=== PATIENT | female | born 1960 | race Two or more races ===

== ENCOUNTER 2018-05-24 08:35 | Emergency (ER) | payer OTHER ==
[~2018-05-24] VITALS: Ht 160 cm; Wt 70.3 kg
[~2018-05-24 08:35] MED LIST: COZAAR50 MG
[2018-05-24] MEDS ORDERED: SYNTHROID50 MCG (08:57)
[2018-05-24] MEDS ORDERED: LIPITOR40 MG (08:57)
== END 2018-05-24 12:11 | disposition home or self-care (01) ==
LOC: ER 08:35
DX: R10.2 Pelvic and perineal pain (principal)

== ENCOUNTER 2019-01-20 08:47 | Outpatient (CLI) | payer OTHER ==
[~2019-01-20 08:47] MED LIST changes: +LIPITOR40 MG; +SYNTHROID50 MCG
== END 2019-01-20 09:35 | disposition home or self-care (01) ==
LOC: SONOGRAMA 08:47
DX: E04.2 Nontoxic multinodular goiter (principal)

== ENCOUNTER 2019-02-25 11:31 | Emergency (ER) | payer OTHER ==
[~2019-02-25] VITALS: Ht 160 cm; Wt 71.7 kg
[2019-02-25] MEDS ORDERED: BUTALBIT-ACETA1 EACH PO (13:17)
[2019-02-25] MEDS ORDERED: LOSARTAN POTAS100 MG PO (13:17)
[2019-02-25] MEDS ORDERED: NORFLEX100MG PO (13:17)
== END 2019-02-25 13:28 | disposition home or self-care (01) ==
LOC: ER 11:31
DX: G44.209 Tension-type headache, unspecified, not intractable (principal)

== ENCOUNTER 2020-07-23 10:33 | Outpatient (CLI) | payer OTHER ==
[~2020-07-23 10:33] MED LIST changes: +BUTALBIT-ACETA1 EACH PO; +LOSARTAN POTAS100 MG PO; +NORFLEX100MG PO
== END 2020-07-23 10:36 | disposition home or self-care (01) ==
LOC: SONOGRAMA 10:33
PROVIDERS: ATTEND Pathology Anatomic Pathology & Clinical Pathology
DX: E04.2 Nontoxic multinodular goiter (principal)

== ENCOUNTER 2020-12-07 10:21 | Outpatient (CLI) | payer OTHER | END 2020-12-07 10:23 | disposition home or self-care (01) | LOC: NUCLEAR 10:21 | PROVIDERS: ATTEND Internal Medicine | DX: M81.0 Age-related osteoporosis without current pathological fracture (principal); I87.2 Venous insufficiency (chronic) (peripheral) ==

== ENCOUNTER 2020-12-27 07:21 | Outpatient (CLI) | payer OTHER | END 2020-12-27 07:35 | disposition home or self-care (01) | LOC: TOM 07:21 | PROVIDERS: ATTEND Internal Medicine Gastroenterology | DX: K86.2 Cyst of pancreas (principal); K57.30 Diverticulosis of large intestine without perforation or abscess without bleeding; R10.30 Lower abdominal pain, unspecified ==

== ENCOUNTER → 2020-12-27 08:26 | Outpatient (CLI) | payer OTHER | END | disposition home or self-care (01) | LOC: LAB 08:26 | PROVIDERS: ATTEND Radiology Diagnostic Radiology | DX: K57.30 Diverticulosis of large intestine without perforation or abscess without bleeding (principal) ==

== ENCOUNTER 2021-03-20 11:15 | Outpatient (CLI) | payer OTHER | END 2021-03-20 11:29 | disposition home or self-care (01) | LOC: SONOGRAMA 11:15 | PROVIDERS: ATTEND Internal Medicine Cardiovascular Disease | DX: M71.21 Synovial cyst of popliteal space [Baker], right knee (principal); M25.561 Pain in right knee ==

== ENCOUNTER 2023-10-06 06:00 | Day surgery (SDC) | payer OTHER ==
[2023-09-30 08:37] LABS: PH,URINE 5.5 (5.0-8.0); URINE APPEARANCE Cloudy; URINE BILIRRUBIN Negative (NEGATIVE); URINE BLOOD Trace; URINE COLOR Dark Yellow; URINE GLUCOSE Negative (NEGATIVE); URINE LEUKOCYTE Negative; URINE NITRATE Negative; URINE PROTEIN Negative (NEGATIVE)
[2023-09-30 08:41] LABS: HEMATOCRIT 34.7 % (36.0-45.00); HEMOGLOBIN 11.8 g/dL (12.0-15.00); MEAN CELL VOLUME 89.2 fL (80.00-100.00); MEAN CORPUSCULAR HEMOGLOBIN 30.4 pg (27.00-32.0); MEAN CORPUSCULAR HGB CONC 34.1 g/dl (32.0-36.0); PLATELET COUNT 249 K/uL (150-450); RED BLOOD COUNT 3.89 M/uL (4.00-6.00); RED CELL DISTRIBUTION WIDTH 13.7 % (11.5-14.5)
[2023-09-30 08:42] LABS: URINE BACTERIA 7.5 uL (0.0-1933); URINE EPITHELIAL CELLS 5.2 uL (0.0-38.8); URINE RBC 41.3 uL (0.0-20.8); URINE WBC 6.3 uL (0.0-23.2)
[2023-09-30 09:27] LABS: INR 1.06; PARTIAL THROMBOPLASTIN TIME 25.8 SECONDS (22.0-34.0); PROTHROMBIN TIME 11.1 SECONDS (9.0-11.5)
[2023-09-30 09:30] LABS: BILIRUBIN TOTAL 0.64 mg/dL (0.3-1.2); CREATININE SERUM 0.73 mg/dL (0.55-1.02); GFR 80.01; GLOBULINA 3.3 G/DL (2.4-3.5); POTASSIUM 4.52 mEq/L (3.5-5.1); TOTAL PROTEIN 7.3 gm/dL (6.4-8.2)
[2023-10-06] MEDS ORDERED: CEFAZOLIN SODIUM 1,000 MG VIAL IV ONE (11:15)
[2023-10-06] MEDS ORDERED: CEFAZOLIN SODIUM 1,000 MG VIAL IV SCH (12:15)
[2023-10-06] MEDS ORDERED: FAMOTIDINE/PF 20 MG/10 ML SYRINGE IV SCH (12:15)
[2023-10-06] MEDS ORDERED: FAMOTIDINE/PF 20 MG/2 ML VIAL ONE (12:35)
[2023-10-06] MEDS ORDERED: CEFAZOLIN SODIUM 1,000 MG VIAL ONE (12:35)
== END 2023-10-06 14:10 | disposition home or self-care (01) ==
LOC: CIR.AMB 06:00
PROVIDERS: ATTEND Specialist
DX: K42.9 Umbilical hernia without obstruction or gangrene (principal); I10 Essential (primary) hypertension; H40.9 Unspecified glaucoma; H52.10 Myopia, unspecified eye

== ENCOUNTER 2024-03-01 08:25 | Outpatient (CLI) | payer OTHER | END 2024-03-01 08:27 | disposition home or self-care (01) | LOC: NUCLEAR 08:25 | PROVIDERS: ATTEND Internal Medicine Hematology & Oncology | DX: I73.9 Peripheral vascular disease, unspecified (principal); I87.2 Venous insufficiency (chronic) (peripheral) ==